=== PATIENT | male | born 1930 | race Caucasian/White ===

== ENCOUNTER 2016-08-18 15:51 | Inpatient (IN) | payer MEDICARE, BC ==
[~2016-08-18] VITALS: Ht 175.3 cm; Wt 69.5 kg
[~2016-08-18 15:51] MED LIST: EXELON1 EACH TD; MAALOX DPS30 ML PO; MILK OF MAGNESI10 ML PO; SURFAK DPS240 MG PO
--- NOTE | 2016-08-22 14:15 | HP ---
ADMIT: 08/18/2016 RM/LOC: 503 [facility] MR#: [id number] [address] [address] [address] [place] [address] History and Physical SEX: M AGE: 85 : 1930 DATE OF SERVICE: CHIEF COMPLAINT: Left hip and leg pain. HISTORY OF PRESENT ILLNESS: This is an 85-year-old male who came into the [facility]opedic [facility] office today. He has altered mental status with known dementia and is unable to give a good history, so history was provided by his . His states that he fell Sunday evening on his left side. He was not hurting a lot and was still mobile, but today he complained of increasing pain. They decided to come in to the clinic where we took x-rays and he was found to have a left nondisplaced femoral neck fracture. He is now being admitted to [facility] for evaluation and treatment of the left nondisplaced femoral neck fracture. ALLERGIES: NONCONTRIBUTORY AND WILL NOT BE DISCUSSED HERE. MEDICATIONS: Noncontributory and will not be discussed here. PAST MEDICAL HISTORY: Noncontributory and will not be discussed here. SOCIAL HISTORY: Noncontributory and will not be discussed here. PAST SURGICAL HISTORY: Noncontributory and will not be discussed here. FAMILY HISTORY: Noncontributory and will not be discussed here. REVIEW OF SYSTEMS: Noncontributory and will not be discussed here. PHYSICAL EXAMINATION: The patient is sitting in a wheelchair with his left lower extremity externally rotated. There is limited range of motion due to pain of his left lower extremity. There is pain to palpation of the left hip and groin region. No abnormalities of the skin are noted, and neurovascular ADMIT: 08/18/2016 RM/LOC: 503 [facility] MR#: [id number] [address] [address] [address] History and Physical SEX: M AGE: 85 : 1930 status is intact. IMAGING: X-ray of the left lower extremity shows a nondisplaced left femoral neck fracture. No other bony abnormalities are noted. ASSESSMENT: Nondisplaced left femoral neck fracture. PLAN: The patient is being admitted to [facility] today. He will receive evaluation by Family Medicine doctor and clearings for left femoral neck pinning tomorrow morning done by Dr. Combs. The risks, benefits, and alternatives were discussed with the patient and his , and they elected to proceed with the procedure. ERICK Felton / Harshad Combs MD / juan JOB #: [id number] CC: Harshad Combs, Attending Physician Demetri Bhatt, Family Physician
[2016-08-23] MEDS ORDERED: DULCOLAX-DPS10 MG PR (13:31)
[2016-08-23] MEDS ORDERED: ENEMA READY TO133 ML PR (13:31)
[2016-08-23] MEDS ORDERED: SEROQUEL25 MG PO (13:32)
[2016-08-23] MEDS ORDERED: TENORMIN-DPS25 MG PO (13:32)
[2016-08-23] MEDS ORDERED: LOVENOX DP40 MG/0.4 SQ (13:33)
[2016-08-23] MEDS ORDERED: DUONEB DPS3 ML IH (13:33)
--- NOTE | 2016-09-03 09:21 | OR ---
ADMIT: 08/18/2016 RM/LOC: 503 [facility] MR#: [id number] [address] [address] [address] [place] [address] Operative/Delivery Room Report SEX: M AGE: 85 : 1930 SURGERY DATE: 08/19/2016 SURGEON: Harshad Combs MD PREOPERATIVE DIAGNOSIS: Left impacted femoral neck fracture. POSTOPERATIVE DIAGNOSIS: Left impacted femoral neck fracture. PROCEDURE: Left hip pinning. MANAGER MEDICARE MARKETING: None. ANESTHESIA: General. COMPLICATIONS: None. ESTIMATED BLOOD LOSS: 5 mL. PROCEDURE IN DETAIL: The patient was taken to the operating room, received general anesthetic, placed on a fracture table. Left leg placed in a traction boot, right leg abducted out of the field. At that point, AP and lateral images confirmed a left nondisplaced femoral neck fracture. At that point, the left hip was prepped and draped in a standard fashion, a 1-inch incision was made on the lateral thigh. At that point, 3 guide pins were placed in an inverted triangular configuration within the center of the femoral head. At that point, AP and lateral images confirmed excellent placement of all pins. We then placed a total of three 7.3 cannulated screws into the femoral head with excellent purchase. We sequentially compressed the 3 screws to further compress the femoral neck fracture. At that point, AP and lateral images confirmed good screw placement, good fracture reduction. We then removed our guide pins, irrigated out the wounds, closed subcu with 2-0 Vicryl, placed joe on the skin, applied sterile dressings. He was taken to the recovery room in stable condition with no complications. Harshad Combs MD/ juan JOB #: [id number] CC: Harshad Combs, Attending Physician Demetri Bhatt, Family Physician
--- NOTE | 2016-10-10 21:07 | DS ---
ADMIT: 08/18/2016 RM/LOC: 503 [facility] MR#: [id number] [address] [address] [address] [place] [address] General Discharge Summary SEX: M AGE: 85 : 1930 ADMISSION DATE: 08/18/2016 DISCHARGE DATE: 08/22/2016 REASON FOR ADMISSION: This is an 85-year-old male, who came in to the orthopedic office on 08/18/2016, after sustaining a fall 4 days ago earlier. He was found to have a left nondisplaced femoral neck fracture and was admitted to [facility] for evaluation and treatment, which consisted of left femoral neck pinning done by Dr. Combs. PREOPERATIVE DIAGNOSIS: Left impacted femoral neck fracture. POSTOPERATIVE DIAGNOSIS: Left impacted femoral neck fracture. PROCEDURE: Left hip pinning. CHISEL WORKER: None. ANESTHESIA: General. COMPLICATIONS: None. SURGEON: Harshad Combs MD. ACTIVE MEDICAL PROBLEMS: Parkinson disease, dysphagia, history of hypertension with orthostasis, history of bilateral total knee replacements as well as right hip surgery. HOSPITAL COURSE: The patient was admitted on 08/18/2016, for left hip pinning done on 08/19/[address] Combs without any complications. The patient tolerated the procedure well. Postoperatively, he did well with pain control with use of intraoperative anesthetics as well as postoperative oral analgesics. He did suffer from acute blood-loss anemia, his hemoglobin dropped to 12.7 on 08/22/2016, but he remained hemodynamically stable and did not require blood transfusion. By postoperative day #3, he was doing well, he was safe, stable, and ready for discharge to a fdc facility. DISCHARGE MEDICATIONS: 1. Azilect 1 mg daily. 2. Folvite 1 mg daily. 3. Pepcid 20 mg twice a day. 4. Senokot 1 tablet twice a day. 5. Seroquel 25 mg once everyday. 6. Sinemet 25/250 mg three times a day. ADMIT: 08/18/2016 RM/LOC: 503 [facility] MR#: [id number] [address] [address] [address] [place] [address] General Discharge Summary SEX: M AGE: 85 : 1930 7. Synthroid 0.075 mg everyday. 8. Tenormin 12.5 mg everyday. 9. DuoNeb 3 mL twice a day for five days. 10.B12 injection 1000 mcg every 30 days. 11.Lovenox 40 mg everyday. 12.Exelon 4.6 mg everyday. 13.Tylenol 650 mg every 4 hours as needed for pain. DISCHARGE INSTRUCTIONS: The patient was discharged to a fdc facility with plans to continue physical therapy exercises for his left hip pinning. Follow up in the orthopedic office in 2 weeks for wound check and 6 weeks with x-ray. Follow up with primary care as directed. ERICK Felton / Harshad Combs MD / juan JOB #: [id number] CC: Harshad Combs MD, Attending Physician Demetri Bhatt MD, Family Physician
[2016-10-14] MEDS ORDERED: AZILECT1 MG PO (19:52)
[2016-10-14] MEDS ORDERED: FOLVITE-DPS1 MG PO (19:52)
[2016-10-14] MEDS ORDERED: SYNTHROID DP0.075 MG PO (19:53)
[2016-10-14] MEDS ORDERED: SENOKOT S1 TAB PO (19:53)
[2016-10-14] MEDS ORDERED: SEROQUEL25 MG PO (19:53)
[2016-10-14] MEDS ORDERED: SINEMET 25-2501 EACH PO (19:54)
[2016-10-14] MEDS ORDERED: THERAPEUTIC MUL1 TAB PO (19:54)
[2016-10-14] MEDS ORDERED: MICRO-K DPS10 MEQ PO (19:55)
[2016-10-14] MEDS ORDERED: PEPCID DPS20 MG PO (19:55)
[2016-10-14] MEDS ORDERED: CYANOCOBAL1000 MCG/1 IM (19:57)
[2016-10-14] MEDS ORDERED: TYLENOL DPS325 MG PO (19:58)
[2016-10-14] MEDS ORDERED: TEARS NATURAL D15 ML OU (19:58)
[2016-10-14] MEDS ORDERED: EXELON1 EAC2 TD (19:59)
[2016-10-14] MEDS ORDERED: MILK OF MAGNESI10 ML PO (19:59)
[2016-10-14] MEDS ORDERED: CASODEX50 MG PO (19:59)
== END 2016-08-22 15:45 | DRG 481 ==
LOC: 5MS 15:51
PROVIDERS: ADMIT Orthopaedic Surgery
PROC: 0QH734Z Insertion of Internal Fixation Device into Left Upper Femur, Percutaneous Approach (ICD-10-PCS; principal; 2016-08-19)
DX: S72.002A Fracture of unspecified part of neck of left femur, initial encounter for closed fracture (principal); J98.11 Atelectasis; G20 Parkinson's disease; F02.80 Dementia in other diseases classified elsewhere, unspecified severity, without behavioral disturbance, psychotic disturbance, mood disturbance, and anxiety; R13.10 Dysphagia, unspecified; D62 Acute posthemorrhagic anemia; I10 Essential (primary) hypertension; W19.XXXA Unspecified fall, initial encounter; E03.9 Hypothyroidism, unspecified; Z85.46 Personal history of malignant neoplasm of prostate; Z66 Do not resuscitate

== ENCOUNTER 2016-08-22 11:41 | Inpatient (IN) | payer MEDICARE, BC ==
[~2016-08-22] VITALS: Ht 175.3 cm; Wt 64.0 kg
[2016-08-23] MEDS ORDERED: DULCOLAX-DPS10 MG PR (13:31)
[2016-08-23] MEDS ORDERED: ENEMA READY TO133 ML PR (13:31)
[2016-08-23] MEDS ORDERED: TENORMIN-DPS25 MG PO (13:32)
[2016-08-23] MEDS ORDERED: SEROQUEL25 MG PO (13:32)
[2016-08-23] MEDS ORDERED: LOVENOX DP40 MG/0.4 SQ (13:33)
[2016-08-23] MEDS ORDERED: DUONEB DPS3 ML IH (13:33)
--- NOTE | 2016-09-08 11:25 | NUR ---
PATIENT NOTE CLEVE VALENCIA" HAS BEEN A PATIENT HERE AT [facility] SKILLED CARE SINCE 08/22. WE HAVE MET WITH QUETA AND HIS FAMILY ON 08/31 AND 09/07 TO DISCUSS GOALS AND PLANS. THE DECISION WAS MADE AT THE 09/07 CARE PLAN MEETING THAT DUE TO THE LACK OF PROGRESS BEING MADE, QUETA WOULD GO TO PRIVATE PAY UNTIL BE BECOMES FULL WEIGHT BEARING STATUS. FAMILY AGREED THAT WITH HIS COGNITION GETTING WORSE AND HIM HAVING A DIFFICULT TIME FOLLOWING CUES FROM THERAPY THIS WOULD BE RIGHT WAY TO GO. QUETA WILL BECOME FWB STATUS ON 09/20 THEREFORE THERAPY WILL START BACK UP AND WORK ON STREGTH AND ENDURANCE WITH HOME BEING THE PRIMARY GOAL. DR. RAO AND DR. COLEMAN ARE AWARE OF HIS COGNITION STATUS. MEDICARE DENIAL LETTER ISSUED THIS A.M. QUETA DOES NOT HAVE A MEDICARE PART D PLAN THEREFORE HE WILL ALSO BE RESPONSIBLE FOR THE MEDICATIONS. SOCIAL WORK TO FOLLOW.
--- NOTE | 2016-09-09 23:57 | NUR ---
ENTERED PT ROOM TO CHECK ON SAO2; PT UP AT SIDE OF BED TAKING OFF SOCKS; PT HAD REMOVED OXYGET SAO2 ON RZ 93%; RECREATIONAL AIDE ASSISTS WITH URINAL REORIENTED TO TIME OF DAY; PLEASANTLY CONFUSED.
--- NOTE | 2016-09-09 23:59 | NUR ---
1945; AT BEDSIDE, REPORTS PT CONFUSED; SAO2 79-80 ON 2LNC. INCREASED TO 4L TO IMPROVE SAO2 91% CALL TO DR. WU PAN OPERATOR FOR DR. RAO RECEIVED ORDERS MAY INCREASE O2 TO LIMIT OF 4 L PER NC; AND MONITOR "MAY BE A CO2 RETAINER" CBC AND CHEST XRAY IN AM; SON AND STAYED UNTIL AFTER 2100 AT BEDSIDE. NOTED MORE CONFUSION EVENING HOURS, DISCUSSED THE DEMENTIA AND THE TIME OF DAY. FAMILY VOICE CONCERN THAT HS MED HAD BEEN DISCONTINUED. WILL MONITOR SAO2 T/O THE NIGHT.
--- NOTE | 2016-09-10 06:36 | NUR ---
0610: exam of penis for swelling; noted the meatus channel does curve to the outer edges, less swelling noted, underside of the penial shaft continues to slightly swollen, pt has no c/o pain with manipulation of foreskin with exam. Urine in moctezuma bag light yellow. Day shift RN will update Hospice nurse today.
--- NOTE | 2016-09-20 01:23 | NUR ---
NOTED L EYE, SCLERA RED, TEARING, YELLOW EXUDATE PRESENT AT [place]AS[place], PT HAS NO RECALL IF EYE WAS SCRATCHED, DENIES BURNING. RT EYE, SCLERA CLEAR AT THIS TIME. WILL SEND FAX TO DR. RAO PER REQUEST PER RN TO RN REPORT REGARDING LEFT EYE.
--- NOTE | 2016-09-20 13:43 | NUR ---
PATIENT NOTE QUETA HAS BECOME FULL WEIGHT BEARING STATUS OF TODAY THEREFORE PHYSICAL THERAPY HAS REACCESS HIM AND WILL BEGIN WORKING WITH HIM AGAIN. SO HE WAS PRIVATE PAY FROM 09/07 - 09/19 AT $688.00 A DAY PLUS MEDICATION. SOCIAL WORK TO FOLLOW AND ASSIST WITH D/C PLANNING APPROPRIATE.
--- NOTE | 2016-10-11 16:06 | NUR ---
PATIENT NOTE QUETA WILL BE D/C TO HIS HOME 10/12, SON JESSICA WILL BE HERE TO TRANSPORT HIM HOME. HIS SON MIKHAIL WILL BE COMING FROM [place] TO STAY WITH QUETA AND SEE JUST HOW MUCH CARE IS NEEDED. LOUIE WITH HOME [employer]ARE AND [employer] WILL BE NOTIFIED AND THEY WILL WORK ON GETTING THE HELP SIT UP. IN VISITING WITH QUETA AND LEANDRA THEY ASK THAT [facility] BE THE [facility] PROVIDER. I CALLED AND NOTIFIED SHERIF OF THIS, REFERRAL ALSO FAXED. QUETA HAS ALL NECESSARY EQUIPMENT AND FAMILY IS WILLING TO GET WHAT HE MAY NEED ONCE HOME. FAMILY REMAINS ATTENTIVE AND SUPPORTIVE.
[2016-10-14] MEDS ORDERED: AZILECT1 MG PO (19:52)
[2016-10-14] MEDS ORDERED: FOLVITE-DPS1 MG PO (19:52)
[2016-10-14] MEDS ORDERED: SENOKOT S1 TAB PO (19:53)
[2016-10-14] MEDS ORDERED: SYNTHROID DP0.075 MG PO (19:53)
[2016-10-14] MEDS ORDERED: SEROQUEL25 MG PO (19:53)
[2016-10-14] MEDS ORDERED: THERAPEUTIC MUL1 TAB PO (19:54)
[2016-10-14] MEDS ORDERED: SINEMET 25-2501 EACH PO (19:54)
[2016-10-14] MEDS ORDERED: MICRO-K DPS10 MEQ PO (19:55)
[2016-10-14] MEDS ORDERED: PEPCID DPS20 MG PO (19:55)
[2016-10-14] MEDS ORDERED: CYANOCOBAL1000 MCG/1 IM (19:57)
[2016-10-14] MEDS ORDERED: TEARS NATURAL D15 ML OU (19:58)
[2016-10-14] MEDS ORDERED: TYLENOL DPS325 MG PO (19:58)
[2016-10-14] MEDS ORDERED: EXELON1 EAC2 TD (19:59)
[2016-10-14] MEDS ORDERED: CASODEX50 MG PO (19:59)
[2016-10-14] MEDS ORDERED: MILK OF MAGNESI10 ML PO (19:59)
== END 2016-10-12 14:30 | disposition home health service (06) | DRG 560 ==
LOC: SNU 11:41
PROVIDERS: ADMIT Internal Medicine
DX: S72.002D Fracture of unspecified part of neck of left femur, subsequent encounter for closed fracture with routine healing (principal); J98.11 Atelectasis; G20 Parkinson's disease; F02.80 Dementia in other diseases classified elsewhere, unspecified severity, without behavioral disturbance, psychotic disturbance, mood disturbance, and anxiety; W19.XXXD Unspecified fall, subsequent encounter; I10 Essential (primary) hypertension; E03.9 Hypothyroidism, unspecified; R13.10 Dysphagia, unspecified; Z85.46 Personal history of malignant neoplasm of prostate; Z66 Do not resuscitate; Z96.653 Presence of artificial knee joint, bilateral